=== PATIENT | male | born 1960 | race African-American/Black ===

== ENCOUNTER 2019-02-20 18:49 | Emergency (ER) | payer SELFPAY ==
[~2019-02-20] VITALS: Ht 172.7 cm; Wt 91.0 kg
[2019-02-20 18:57] VITALS: BP 152/103
== END 2019-02-21 01:34 | disposition left against medical advice (07) ==
LOC: ER 18:49
DX: Z53.21 Procedure and treatment not carried out due to patient leaving prior to being seen by health care provider (principal)

== ENCOUNTER 2020-04-21 21:32 | Inpatient (IN) | payer MEDICAID, OTHER ==
[~2020-04-21] VITALS: Ht 172.7 cm; Wt 95.9 kg
[2020-04-21] MEDS ORDERED: LORAZEPAM 2MG/ML CPJ IM STA (22:08)
[2020-04-21] MEDS ORDERED: SODIUM CHLORIDE 0.9% 1,000 ML IV ONE (22:08)
[2020-04-21] MEDS ORDERED: LORAZEPAM 2MG/ML CPJ IV ONE (22:15)
[2020-04-21] MEDS ORDERED: HALOPERIDOL LACTATE 5MG/ML VIAL IM ONE (22:15)
[2020-04-21] MEDS ORDERED: ASPIRIN 300MG SUPP PR ONE (22:15)
[2020-04-21] MEDS ORDERED: ASPIRIN 81MG EC TABLET PO ONE (22:30)
[2020-04-21 23:00] LABS: BASOPHILS % 0.3 % (0.0-2.0); EOSINOPHILS % 0.1 % (0.0-5.0); HEMOGLOBIN. 14.3 g/dL (14.0-18.0); LYMPHOCYTES % 18.4 % (20.0-50.0); MEAN PLATELET VOLUME 10.2 fl (7.4-10.4); MONOCYTES % 5.5 % (2.0-8.0); NEUTROPHILS % 75.7 % (40.0-76.0); PLATELET 277 x1000/uL (130-400); RED CELL DISTRIBUTION WIDTH 14.6 % (11.6-14.6)
[2020-04-21 23:06] LABS: CHLORIDE 106 mEq/L (98-107)
[2020-04-21 23:11] LABS: ETHANOL BLOOD < 10 mg/dL; PARTIAL THROMBOPLASTIN TIME 23.7 sec (23.4-31.0); PROTHROMBIN TIME 10.4 sec (9.6-11.0)
[2020-04-21 23:16] LABS: CREATINE KINASE 485 IU/L (39-308)
[2020-04-21 23:46] LABS: CLARITY URINE CLEAR (CLEAR); COLOR URINE YELLOW (YELLOW); KETONES URINE TRACE (NEGATIVE); LEUKOCYTE ESTERASE URINE NEGATIVE (NEGATIVE); NITRITE URINE NEGATIVE (NEGATIVE); OCCULT BLOOD URINE NEGATIVE (NEGATIVE); PROTEIN URINE 2+ (NEGATIVE); SPECIFIC GRAVITY URINE 1.033 (1.005-1.030)
[2020-04-21 23:56] LABS: *AMPHETAMINES SCREEN URINE NEGATIVE (NEGATIVE); *BARBITURATES SCREEN URINE NEGATIVE (NEGATIVE); *BENZODIAZEPINES SCREEN URINE NEGATIVE (NEGATIVE); *COCAINE SCREEN URINE NEGATIVE (NEGATIVE); METHADONE URINE SCREEN NEGATIVE (NEGATIVE); OPIATES URINE SCREEN NEGATIVE (NEGATIVE); PHENCYCLIDINE URINE SCREEN NEGATIVE (NEGATIVE)
[2020-04-21 23:57] LABS: CANNABINOID URINE SCREEN NEGATIVE (NEGATIVE)
[2020-04-22 09:45] VITALS: BP 148/90
[2020-04-22] MEDS ORDERED: HALOPERIDOL LACTATE 5MG/ML VIAL IM PRN (10:30)
[2020-04-22] MEDS ORDERED: ONDANSETRON HCL 4MG/2ML INJ IV PRN (10:30)
[2020-04-22] MEDS ORDERED: LORAZEPAM 2MG/ML CPJ IM PRN (10:30)
[2020-04-22] MEDS ORDERED: ACETAMINOPHEN 325MG TABLET PO PRN (10:30)
[2020-04-22] MEDS: METOPROLOL TARTRATE 25MG TABLET PO SCH ×2 (11:23→21:42)
[2020-04-22] MEDS: ENOXAPARIN 40MG/0.4ML SYR SUBCUT SCH (11:24)
[2020-04-22] MEDS: SODIUM CHLORIDE 0.9% 1,000 ML IV SCH (11:24)
[2020-04-22 12:00] VITALS: BP 139/89
[2020-04-22 16:00] VITALS: BP 143/87
[2020-04-22 20:06] VITALS: BP 145/96
[2020-04-23] VITALS: BP 149/101
[2020-04-23] MEDS: SODIUM CHLORIDE 0.9% 1,000 ML IV SCH ×2 (00:50→13:25)
[2020-04-23 04:00] VITALS: BP 136/93
[2020-04-23 06:23] LABS: BASOPHILS % 0.5 % (0.0-2.0); EOSINOPHILS % 0.5 % (0.0-5.0); HEMATOCRIT. 35.2 % (42.0-52.0); HEMOGLOBIN. 11.5 g/dL (14.0-18.0); LYMPHOCYTES % 29.5 % (20.0-50.0); MEAN CORPUSCULAR HEMOGLOBIN 26.5 pg (28.0-32.0); MEAN CORPUSCULAR VOLUME 81.3 fL (80.0-94.0); MEAN PLATELET VOLUME 9.5 fl (7.4-10.4); MONOCYTES % 6.4 % (2.0-8.0); NEUTROPHILS % 63.1 % (40.0-76.0); PLATELET 199 x1000/uL (130-400); RED BLOOD CELL COUNT 4.33 mill/uL (4.7-6.1); RED CELL DISTRIBUTION WIDTH 14.3 % (11.6-14.6)
[2020-04-23 06:35] LABS: CHLORIDE 110 mEq/L (98-107)
[2020-04-23 08:00] VITALS: BP 176/111
[2020-04-23] MEDS ORDERED: ASPIRIN 81MG TABLET PO SCH (09:00)
[2020-04-23] MEDS: AMLODIPINE 10MG TABLET PO SCH (09:46)
[2020-04-23] MEDS: ASPIRIN 81MG TABLET PO SCH (09:46)
[2020-04-23] MEDS: METOPROLOL TARTRATE 25MG TABLET PO SCH ×2 (09:46→21:46)
[2020-04-23] MEDS: ENOXAPARIN 40MG/0.4ML SYR SUBCUT SCH (09:47)
[2020-04-23 12:00] VITALS: BP 142/96
[2020-04-23] MEDS ORDERED: METF-416 MT (12:34)
[2020-04-23] MEDS ORDERED: AMLO10TA80 PO (12:34)
[2020-04-23 16:04] VITALS: BP 154/100
[2020-04-23 20:00] VITALS: BP 151/86
[2020-04-24] VITALS: BP 153/101
[2020-04-24] MEDS: SODIUM CHLORIDE 0.9% 1,000 ML IV SCH ×2 (02:45→17:34)
[2020-04-24 04:00] VITALS: BP 149/97
[2020-04-24 08:00] VITALS: BP 136/85
[2020-04-24] MEDS: ASPIRIN 81MG TABLET PO SCH (10:25)
[2020-04-24] MEDS: ENOXAPARIN 30MG/0.3ML SYR SUBCUT SCH ×2 (10:25→21:03)
[2020-04-24] MEDS: AMLODIPINE 10MG TABLET PO SCH (10:26)
[2020-04-24] MEDS: METOPROLOL TARTRATE 25MG TABLET PO SCH ×2 (10:26→21:04)
[2020-04-24 12:00] VITALS: BP 139/89
[2020-04-24 16:06] VITALS: BP 127/76
[2020-04-24 19:55] VITALS: BP 136/93
[2020-04-25] VITALS (7 sets, daily range): BP systolic 126–149; BP diastolic 87–97
[2020-04-25] MEDS: SODIUM CHLORIDE 0.9% 1,000 ML IV SCH ×2 (05:25→17:49)
[2020-04-25] MEDS: ENOXAPARIN 30MG/0.3ML SYR SUBCUT SCH (08:47)
[2020-04-25] MEDS: ASPIRIN 81MG TABLET PO SCH (08:47)
[2020-04-25] MEDS: METOPROLOL TARTRATE 25MG TABLET PO SCH (08:47)
[2020-04-25] MEDS: AMLODIPINE 10MG TABLET PO SCH (08:47)
== END 2020-04-25 20:58 | DRG 52 ==
LOC: ER 21:32 → 5WST 04-22 00:24 → ENRESERV 04-22 02:36 → CANRESERV 04-22 02:36 → EDBEDREQSVC 04-22 04:11 → EDBEDREQTM 04-22 04:11 → EDBEDREQSVC 04-22 07:30 → ENRESERV 04-22 07:40 → CANRESERV 04-22 07:40 → ENRESERV 04-22 08:49
PROVIDERS: ADMIT Internal Medicine; ATTEND Internal Medicine
DX: G93.40 Encephalopathy, unspecified (principal); N17.0 Acute kidney failure with tubular necrosis; R65.11 Systemic inflammatory response syndrome (SIRS) of non-infectious origin with acute organ dysfunction; F29 Unspecified psychosis not due to a substance or known physiological condition; D72.829 Elevated white blood cell count, unspecified; E11.9 Type 2 diabetes mellitus without complications; E87.6 Hypokalemia; I10 Essential (primary) hypertension; R45.1 Restlessness and agitation
CPT/HCPCS: 36415; 71045; 80048; 80053; 80061; 80305; 80307; 80320; 80329; 81003; 82550; 83036; 83880; 84443; 84484; 85025; 93005; 99291; J1630; J1650; J2060; J7030; G0480

== ENCOUNTER 2022-10-15 03:44 | Emergency (ER) | payer OTHER ==
[~2022-10-15] VITALS: Ht 180.3 cm; Wt 100.0 kg
[~2022-10-15 03:44] MED LIST: AMLO10TA80 PO; METF-416 MT
[2022-10-15 05:29] LABS: HEMATOCRIT. 36.5 % (42.0-52.0); HEMOGLOBIN. 11.7 g/dL (14.0-18.0); MEAN CORPUSCULAR HEMOGLOBIN 26.2 pg (28.0-32.0); MEAN CORPUSCULAR VOLUME 81.5 fL (80.0-94.0); PLATELET 309 x1000/uL (130-400); RED BLOOD CELL COUNT 4.48 mill/uL (4.7-6.1); RED CELL DISTRIBUTION WIDTH 15.1 % (11.6-14.6)
[2022-10-15 05:47] LABS: CHLORIDE 109 mEq/L (98-107)
[2022-10-15 05:55] LABS: ETHANOL BLOOD < 10 mg/dL
[2022-10-15 06:00] VITALS: BP 169/106
[2022-10-15 06:36] LABS: CLARITY URINE CLEAR (CLEAR); COLOR URINE YELLOW (YELLOW); KETONES URINE TRACE (NEGATIVE); LEUKOCYTE ESTERASE URINE NEGATIVE (NEGATIVE); NITRITE URINE NEGATIVE (NEGATIVE); OCCULT BLOOD URINE NEGATIVE (NEGATIVE); PH URINE 5.5 (4.5-8.0); PROTEIN URINE 1+ (NEGATIVE)
[2022-10-15 07:33] LABS: PLATELET ESTIMATE NORMAL
[2022-10-15 07:45] LABS: *AMPHETAMINES SCREEN URINE NEGATIVE (NEGATIVE); *BARBITURATES SCREEN URINE NEGATIVE (NEGATIVE); *BENZODIAZEPINES SCREEN URINE NEGATIVE (NEGATIVE); *COCAINE SCREEN URINE NEGATIVE (NEGATIVE); CANNABINOID URINE SCREEN NEGATIVE (NEGATIVE); METHADONE URINE SCREEN NEGATIVE (NEGATIVE); OPIATES URINE SCREEN NEGATIVE (NEGATIVE); PHENCYCLIDINE URINE SCREEN NEGATIVE (NEGATIVE)
== END 2022-10-15 09:09 | disposition home or self-care (01) ==
LOC: ER 03:44
DX: F22 Delusional disorders (principal); E11.65 Type 2 diabetes mellitus with hyperglycemia; R00.0 Tachycardia, unspecified; R03.0 Elevated blood-pressure reading, without diagnosis of hypertension; Z73.6 Limitation of activities due to disability; I44.7 Left bundle-branch block, unspecified; Z20.822 Contact with and (suspected) exposure to COVID-19
CPT/HCPCS: 36415; 80053; 80305; 80307; 80320; 80329; 81003; 85025; 87426; 93005; 99284; C9803; G0480